=== PATIENT | male | born 1965 ===

== ENCOUNTER 2022-05-02 18:01 | Outpatient (REF) | payer OTHER, SELFPAY ==
[2022-05-02 18:43] LABS: Influenza A PCR NEGATIVE (Negative); Influenza B PCR NEGATIVE (Negative); Resp Syncy Virus RNA Qual PCR NEGATIVE (Negative); SARS COV2 PCR INHOUSE NEGATIVE (Negative)
== END 2022-05-02 18:02 | disposition home or self-care (01) ==
LOC: HO.LNP 18:01
PROVIDERS: PCP Family Medicine; Visit Provider Family Medicine
DX: Z20.822 Contact with and (suspected) exposure to COVID-19 (principal); B34.9 Viral infection, unspecified
CPT/HCPCS: 0241U